=== PATIENT | female | born 1990 | race American Indian/Alaskan Native ===

== ENCOUNTER 2017-05-30 20:27 | Emergency (ER) | payer SELFPAY ==
[2017-05-30 22:13] VITALS: BP 114/74
[2017-05-31] MEDS ORDERED: TYLENOL ONE (00:44)
[2017-05-31] MEDS ORDERED: TYLENOL PO ONE (00:44)
[2017-05-31] MEDS ORDERED: BOOSTRIX IM ONE (00:50)
[2017-05-31] MEDS ORDERED: NORCO 7.5/325 PO ONE (00:50)
[2017-05-31] MEDS: XYLOCAINE 1% MPF 5 mL INFILTRATI ONE ×2 (01:37→01:59)
--- NOTE | 2017-05-31 01:55 | XRay Report ---
FINAL REPORT PROCEDURE: XR FOOT 3+V RT TECHNIQUE: Right foot radiographs, AP, lateral, and oblique views. CPT 82249 HISTORY: post FB removal COMPARISON: No prior studies are available for comparison. FINDINGS: Fracture (s) and/or Dislocation(s): None . Alignment: Normal . Joint space(s): Normal . Soft tissues: Normal . Bone mineralization: Normal . Foreign bodies: None . Calcaneal spurring: None . IMPRESSION: Normal Examination. No foreign body is identified.
--- NOTE | 2017-05-31 05:24 | Emergency Department Report ---
- General Chief Complaint: Extremity Injury, Lower Stated Complaint: STEPPED ON NAIL Source: patient Mode of arrival: Ambulatory Limitations: No Limitations - History of Present Illness Initial Comments: 27 year old female presents to ED with nail in plantar right foot. patient denies being diabetic. patient unsure if tetanus shot up to date or not. patient states there is no chance of . patient is stable, neurologically intact and in no acute distress. -: Sudden Location: other (right foot) Extremity Location: Right: Foot (right) Place: outdoors Patient Tetanus UTD: No Context: accidental Associated Symptoms: pain, suspect foreign body present. denies: loss of feeling/numbness, nausea/vomiting, fever - Related Data Previous Rx's Medication Instructions Recorded Last Taken Type Cephalexin [Keflex] 500 mg PO Q12HR #20 cap 05/31/17 Unknown Rx Allergies Allergy/AdvReac Type Severity Reaction Status Date / Time No Known Allergies Allergy Verified 05/31/17 00:46 ED Review of Systems ROS: Stated complaint: STEPPED ON NAIL Other details as noted in HPI Constitutional: denies: chills, fever Eyes: denies: eye pain, eye discharge, vision change ENT: denies: ear pain, throat pain Respiratory: denies: cough, shortness of breath, wheezing Cardiovascular: denies: chest pain, palpitations Endocrine: no symptoms reported Gastrointestinal: denies: abdominal pain, nausea, diarrhea Genitourinary: denies: urgency, dysuria, discharge Musculoskeletal: denies: back pain Skin: denies: rash, lesions Neurological: denies: headache, weakness, paresthesias Psychiatric: denies: anxiety, depression Hematological/Lymphatic: denies: easy bleeding, easy bruising ED Past Medical Hx - Past Medical History Previous Medical History?: No - Surgical History Past Surgical History?: No - Social History Smoking Status: Never Smoker Substance Use Type: None - Medications Home Medications: Home Medications Medication Instructions Recorded Confirmed Last Taken Type Cephalexin [Keflex] 500 mg PO Q12HR #20 cap 05/31/17 Unknown Rx ED Physical Exam - General Limitations: No Limitations General appearance: alert, in no apparent distress - Head Head exam: Present: atraumatic, normocephalic - Eye Eye exam: Present: normal appearance - ENT ENT exam: Present: mucous membranes moist - Neck Neck exam: Present: normal inspection - Respiratory Respiratory exam: Present: normal lung sounds bilaterally. Absent: respiratory distress - Cardiovascular Cardiovascular Exam: Present: regular rate, normal rhythm. Absent: systolic murmur, diastolic murmur, rubs, gallop - GI/Abdominal GI/Abdominal exam: Present: soft, normal bowel sounds - Extremities Exam Extremities exam: Present: normal inspection, tenderness (right plantar foot), normal capillary refill, other (bilateral pedal pulses intact) - Back Exam Back exam: Present: normal inspection - Neurological Exam Neurological exam: Present: alert, oriented X3 - Psychiatric Psychiatric exam: Present: normal affect, normal mood - Skin Skin exam: Present: warm, dry, intact, normal color, other (nail senior living lodged into plantar portion of right foot. no bleeding present. ). Absent: rash ED Course Vital Signs 05/30/17 22:06 Temperature 98.1 F Pulse Rate 59 L Respiratory 18 Rate Blood Pressure 114/74 O2 Sat by Pulse 100 Oximetry ED Medical Decision Making - Radiology Data Radiology results: report reviewed XR right foot A metallic nail is seen in the plantar soft tissues of the forefoot. there is no bony involvement XR right foot (post) Normal examination. No foreign body is identified. - Medical Decision Making 27 year old female presents to ED with foreign body present in plantar surface of right foot. patient has taken nail out of her foot herself while in room after she was medicated with pain medication. patient had post foreign body xray then proceeded to leave. patient was not present in room when provider returned to room to re-exam patient and provide patient education. patient has had up to date tetanus provided during ED visit. 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 Critical care attestation.: If time is entered above; I have spent that time in minutes in the direct care of this critically ill patient, excluding procedure time. ED Disposition Clinical Impression: Nail entering through skin, initial encounter Qualifiers: Encounter type: initial encounter Qualified Code(s): W45.0XXA - Nail entering through skin, initial encounter Disposition: ELOPED Is pt being admited?: No Does the pt Need Aspirin: No Condition: Stable Prescriptions: Cephalexin [Keflex] 500 mg PO Q12HR #20 cap Referrals: PRIMARY CARE, [Primary Care Provider] - 3-5 Days
--- NOTE | 2017-05-31 09:41 | XRay Report ---
Right foot 3 views. Findings: A metallic nail is seen in the plantar soft tissues of the forefoot. There is no bony involvement.
== END 2017-05-31 01:45 | disposition left against medical advice (07) ==
LOC: ED 20:27
DX: M79.671 Pain in right foot (principal); W45.0XXA Nail entering through skin, initial encounter; Y93.89 Activity, other specified; Y92.89 Other specified places as the place of occurrence of the external cause; Y99.8 Other external cause status
CPT/HCPCS: 90471; 90715; 99283